=== PATIENT | female | born 1985 | race Two or more races ===

== ENCOUNTER 2024-07-08 01:05 | Emergency (ER) | payer MEDICAID, OTHER ==
[~2024-07-08] VITALS: Ht 162.6 cm; Wt 103.6 kg
--- NOTE | 2024-07-08 01:42 | ED.PDOC ---
Musculoskeletal HPI Comments 38-year-old female came to your due to right upper extremity numbness. Patient has history of lupus and pulmonary emboli and she has been off her medications. States for the past 3 days, her right upper extremity has been swollen and numb. States radiating to her right shoulder and she has been experiencing pinching p ain on her heart. Chief Complaint: Upper Extremity Time Seen by MD: 01:41 Reviewed Notes: Nurses Notes Allergies: Coded Allergies: NO KNOWN ALLERGIES (Unverified , 07/08/24) Information Source: Patient Mode of Arrival: Ambulatory Location: Right Extremity Location: Arm Timing: Hours Prehospital treatment: None Severity: Moderate Able to Move Extremity: Yes Bear Weight: Limited Pain: Moderate Hand Dominance: Right Mechanism: Spontaneous Circumstances: Spontaneous Onset of Symptoms: Spontaneous Symptoms: Swelling Associated signs and symptoms: Arm pain (right arm numbness) Past Medical History Past Medical History (Other): Lupus Surgical History: Denies all surgeries TITLE SPECIALIST History: Denies all TITLE SPECIALIST Hx Family History Family History: Reviewed,noncontributory to illness Social History Smoker: Non-Smoker Alcohol: Denies ETOH Use Drugs: Denies Drug Use Lives In: Home Constitutional: denies: chills, diaphoresis, fatigue, fever, malaise, sweats, weakness, others EENTM: denies: blurred vision, double vision, ear bleeding, ear discharge, ear drainage, ear pain, ear ringing, eye pain, eye redness, hearing loss, mouth pain, mouth swelling, nasal discharge, nose bleeding, nose congestion, nose pain, photophobia, tearing, throat pain, throat swelling, voice changes, others Respiratory: denies: cough, hemoptysis, orthopnea, SOB at rest, shortness of breath, SOB with excertion, stridor, wheezing, others Cardiovascular: denies: chest pain, dizzy spells, diaphoresis, Dyspnea on exertion, edema, irregular heart beat, left arm pain, lightheadedness, palpitations, PND, syncope, others Gastrointestinal: denies: abdomen distended, abdominal pain, blood streaked bowels, constipated, diarrhea, dysphagia, difficulty swallowing, hematemesis, melena, nausea, poor appetite, poor fluid intake, rectal bleeding, rectal pain, vomiting, others Genitourinary: denies: abnormal vagina bleeding, burning, dyspareunia, dysuria, flank pain, frequency, hematuria, incontinence, pain, , vagina discharge, urgency, others Neurological: denies: dizziness, fainting, headache, left sided numbness, left sided weakness, numbness, paresthesia, pre-existing deficit, right sided numbness, right sided weakness, seizure, speech problems, tingling, tremors, weakness, others Musculoskeletal: reports: others (Right upper arm); denies: back pain, gout, joint pain, joint swelling, muscle pain, muscle stiffness, neck pain Integumetry: denies: bruises, change in color, change in hair/nails, dryness, laceration, lesions, lumps, rash, wounds, others Allergic/Immunocompromised: denies: Difficulty Healing, Frequent Infections, Hives, Itching, others Hematologic/Lymphatic: denies: anemia, blood clots, easy bleeding, easy bruising, swollen glands, others Endocrine: denies: excessive hunger, excessive sweating, excessive thirst, excessive urination, flushing, intolerance to cold, intolerance to heat, unexplained weight gain, unexplained weight loss, others Psychiatric: denies: anxiety, bipolar disorder, depression, hopeless, panic di sorder, schizophrenia, sleepless, suicidal, others Physical Exam General Appearance: Mild Distress, Normal HEENT: Normal ENT Inspection, Pharynx Normal, TMs Normal Neck: Full Range of Motion, Non-Tender, Normal, Normal Inspection Respiratory: Chest Non-Tender, Lungs Clear, No Accessory Muscle Use, No Respiratory Distress, Normal Breath Sounds Cardiovascular: No Edema, No JVD, No Murmur, No Gallop, Normal Peripheral Pulses, Regular Rate/Rhythm Breast Exam: Deferred Gastrointestinal: No Organomegaly, Non Tender, No Pulsatile Mass, Normal Bowel Sounds, Soft Genitalia: Deferred Pelvic: Deferred Rectal: Deferred Extremities: No calf tenderness, Normal capillary refill, Normal inspection, Normal range of motion, Non-tender, No pedal edema Musculoskeletal : Apperance: Normal Neurologic: Alert, is support analyst II-XII nml as Tested, No Motor Deficits, Normal Affect, Normal Mood, No Sensory Deficits Cerebellar Function: Normal Reflexes: Normal Skin: Dry, Normal Color, Warm Lymphatic: No Adenopathy Was a procedure done? Was a procedure done?: No Differential Diagnosis EXT Differential Diagnosis: Cellulitis, Deep Vein Thrombosis, Other (Lupus) X-Ray, Labs, Meds, VS Vital Signs Date Time Temp Pulse Resp B/P (MAP) Pulse Ox O2 Delivery O2 Flow Rate FiO2 07/08/24 02:47 90 17 100 Room Air 07/08/24 02:47 97.8 90 17 108/89 (95) 100 97.8 07/08/24 01:22 97.8 119 18 113/77 (89) 97 Lab Test 07/08/24 02:53 07/08/24 01:56 Range/Units Troponin I High Sensitivity < 3 L < 3 L </=34 ng/L White Blood Count 7.4 4.4-10.8 10^3/uL Red Blood Count 4.46 4.0-5.20 10^6/uL Hemoglobin 11.4 L 12.2-16.2 g/dL Hematocrit 35.1 L 36.0-46.0 % Mean Corpuscular Volume 78.7 L 80.0-100.0 fL Mean Corpuscular Hemoglobin 25.5 L 28.0-32.0 pg Mean Corpuscular Hemoglobin Concent 32.4 32.0-36.0 g/dL Red Cell Distribution Width 16.0 H 11.8-14.3 % Platelet Count 391 140-450 10^3/uL Mean Platelet Volume 7.4 6.9-10.8 fL Neutrophils (%) (Auto) 78.6 37.0-80.0 % Lymphocytes (%) (Auto) 14.8 10.0-50.0 % Monocytes (%) (Auto) 5.1 0.0-12.0 % Eosinophils (%) (Auto) 0.9 0.0-7.0 % Basophils (%) (Auto) 0.6 0.0-2.0 % Neutrophils # (Auto) 5.8 1.6-8.6 10 ^3/uL Lymphocytes # (Auto) 1.1 0.4-5.4 10 ^3/uL Monocytes # (Auto) 0.4 0-1.3 10 ^3/uL Eosinophils # (Auto) 0.1 0-0.8 10 ^3/uL Basophils # (Auto) 0 0-0.2 10 ^3/uL Nucleated Red Blood Cells 0.1 % Sodium Level 142 136-145 mmol/L Potassium Level 3.6 3.5-5.1 mmol/L Chloride Level 106 98-107 mmol/L Carbon Dioxide Level 29 20-31 mmol/L Anion Gap 7 5-15 Blood Urea Nitrogen 9 9-23 mg/dL Creatinine 0.82 0.550-1.02 mg/dL Glomerular Filtration Rate Calc 94 >90 mL/min BUN/Creatinine Ratio 11.0 10.0-20.0 Serum Glucose 88 74-106 mg/dL Calcium Level 9.6 8.7-10.4 mg/dL Total Bilirubin 0.2 0.2-1.0 mg/dL Aspartate Amino Transferase (AST) 44 H 13-40 U/L Alanine Aminotransferase (ALT) 30 7-40 U/L Alkaline Phosphatase 95 46-116 U/L Total Protein 6.5 5.7-8.2 g/dL Albumin 4.1 3.2-4.8 g/dL Current Medications Medications (Trade) Dose Ordered Sig/Ysabel Route Start Time Stop Time Status Last Admin Prednisone 20 mg ONCE ONCE PO 07/08/24 01:45 07/08/24 01:49 DC 07/08/24 02:44 Acetaminophen/ Hydrocodone Bitart ([place] 10/325MG Tab) 1 tab ONCE ONCE PO 07/08/24 01:45 07/08/24 01:49 DC 07/08/24 02:44 Hydroxychloroquine Sulfate (Plaquenil Tablet) 200 mg ONCE ONCE PO 07/08/24 01:45 07/08/24 01:49 DC 07/08/24 02:44 [place] [id number] Ph: [phone] DIAGNOSTIC IMAGING Diagnostic Imaging Report : [id number] Signed PATIENT: KVNG MCCRAY ACCT: [id number] UNIT: [id number] : 1985 LOC: ER ROOM / BED: / AGE / SEX: 38 / F ADM STATUS: REG ER SERVICE [id number] ORDERING PHYSICIAN: BARAK ESPARZA MD PROCEDURE(s): RUDVT - Rt Upper DVT REASON: pain ORDER NUMBER(s): [id number], ACCESSION NUMBER(s): [id number] Examination: RUDVT CLINICAL INDICATION: pain COMPARISON: None. TECHNIQUE: Using real-time ultrasonic imaging and color Doppler the deep venous system of the right upper extremity was studied from the neck to the hand. FINDINGS: Normal augmentation, compression and blood flow characteristics were observed in the right internal jugular, subclavian, axillary, brachial, basilic, cephalic, radial and ulnar veins. No evidence of deep venous thrombosis could be seen. IMPRESSION: No evidence of deep venous thrombosis in right upper extremity could be identified. Electronically Signed 07/08/2024 04:38 Bronwyn Davidson ATED BY: STUART VINSON MD DICTATED DATE/TIME: 07/08/24437 SIGNED BY: STUART VINSON MD SIGNED DATE/TIME: 07/08/24437 CC: First troponin is 2nd troponin is three. EKG shows no signs of ischemia. The patient will be discharged after receiving [place] Plaquenil and prednisone. She is to follow up with the primary care physician in 1-2 days. Time of 1ST Reevaluation: 01:37 Reevaluation 1ST: Unchanged Patient Education/Counseling: Diagnosis, Treatment Family Education/Counseling: No Family Present Departure 1 Departure Time of Disposition: 04:59 Impression: Primary Impression: Lupus Disposition: 01 HOME / SELF CARE / HOMELESS Condition: Stable Discharged With: Self Critical Care Note Critical Care Time?: No Stability Stability form required: No Heart Score Heart Score: Heart Score Response (Comments) Value History N/A 0 EKG N/A 0 Age N/A 0 Risk Factors N/A 0 Troponin N/A 0 Total 0 I personally scribed for BARAK ESPARZA MD ([email or web address]) on 07/08/24 at 01:42. Electronically submitted by Jakob Phipps ([email or web address]). BARAK ESPARZA MD Jul 08, 2024 01:42
[2024-07-08 02:28] LABS: Basophils # (auto) 0 10 ^3/uL (0-0.2); Basophils % (auto) 0.6 % (0.0-2.0); Eosinophils # (auto) 0.1 10 ^3/uL (0-0.8); Hemoglobin 11.4 g/dL (12.2-16.2); Lymphocytes # (auto) 1.1 10 ^3/uL (0.4-5.4); Monocytes # (auto) 0.4 10 ^3/uL (0-1.3)
[2024-07-08 02:30] LABS: Eosinophils % (auto) 0.9 % (0.0-7.0); Hematocrit 35.1 % (36.0-46.0); Lymphocytes % (auto) 14.8 % (10.0-50.0); Mean Corpuscular Hemoglobin 25.5 pg (28.0-32.0); Mean Corpuscular Hgb Conc. 32.4 g/dL (32.0-36.0); Mean Corpuscular Volume 78.7 fL (80.0-100.0); Monocytes % (auto) 5.1 % (0.0-12.0); Neutrophils # (auto) 5.8 10 ^3/uL (1.6-8.6); Neutrophils % (auto) 78.6 % (37.0-80.0); Nucleated Red Blood Cells % 0.1 %; Platelet Count (auto) 391 10^3/uL (140-450); Red Blood Cells 4.46 10^6/uL (4.0-5.20); White Blood Cell 7.4 10^3/uL (4.4-10.8)
[2024-07-08 02:44] LABS: Alanine Aminotransferase 30 U/L (7-40); Albumin 4.1 g/dL (3.2-4.8); Alkaline Phosphatase 95 U/L (46-116); Anion Gap 7 (5-15); Blood Urea Nitrogen 9 mg/dL (9-23); Calcium 9.6 mg/dL (8.7-10.4); Carbon Dioxide 29 mmol/L (20-31); Chloride 106 mmol/L (98-107); Glucose 88 mg/dL (74-106); Potassium 3.6 mmol/L (3.5-5.1); Sodium 142 mmol/L (136-145); Total Protein 6.5 g/dL (5.7-8.2)
[2024-07-08] MEDS: HYDROcodone-ACET 10/325MG TAB PO ONE ×2 (02:44→05:53)
[2024-07-08] MEDS: hydrOXYchloroQUINE SULFATE 200 MG TAB PO ONE (02:44)
[2024-07-08] MEDS: predniSONE 20 MG TAB PO ONE (02:44)
[2024-07-08 03:40] LABS: Aspartate Aminotransferase 44 U/L (13-40); Bilirubin, Total 0.2 mg/dL (0.2-1.0)
--- NOTE | 2024-07-08 04:39 | DVH ---
Examination: RUDVT CLINICAL INDICATION: pain COMPARISON: None. TECHNIQUE: Using real-time ultrasonic imaging and color Doppler the deep venous system of the right upper extremity was studied from the neck to the hand. FINDINGS: Normal augmentation, compression and blood flow characteristics were observed in the right internal jugular, subclavian, axillary, brachial, basilic, cephalic, radial and ulnar veins. No mery dence of deep venous thrombosis could be seen. IMPRESSION: No evidence of deep venous thrombosis in right upper extremity could be identified. Electronically Signed 07/08/2024 04:38 Bronwyn Davidson
[2024-07-08 05:55] VITALS: BP 105/79; PULSE 75; RESP 16; TEMP 97.9; O2SAT 97
== END 2024-07-08 05:56 | disposition home or self-care (01) ==
LOC: ER 01:05
DX: M32.9 Systemic lupus erythematosus, unspecified (principal); M79.601 Pain in right arm; Z86.711 Personal history of pulmonary embolism
CPT/HCPCS: 36415; 80053; 84484; 85025; 93971; 99284; J7512